=== PATIENT | female | born 1965 | race Caucasian/White ===

== ENCOUNTER 2020-12-08 15:28 | Emergency (ER) | payer OTHER ==
[~2020-12-08 15:28] MED LIST: FLEXERIL 10 MG10 MG PO; IBUPROFEN800 MG PO; ZOFRAN ODT 4 MG4 MG SL
[2020-12-08 16:30] LABS: HEMOGLOBIN 14.9 gm/dl (12.3-15.3); RED BLOOD COUNT 4.56 M/UL (4.00-5.10); WHITE BLOOD COUNT 8.2 K/UL (4.5-11.0)
[2020-12-08 17:22] LABS: BUN/CREATININE RATIO 14 (0-10)
[2020-12-08] MEDS ORDERED: MACROBID 100 M100 M1 PO (19:41)
== END 2020-12-08 19:15 | disposition home or self-care (01) ==
LOC: ER1 15:28
PROVIDERS: Physician Assistant
DX: N39.0 Urinary tract infection, site not specified (principal); E87.1 Hypo-osmolality and hyponatremia; R19.7 Diarrhea, unspecified; Z90.49 Acquired absence of other specified parts of digestive tract; Z90.710 Acquired absence of both cervix and uterus; Z88.0 Allergy status to penicillin; Z88.2 Allergy status to sulfonamides
CPT/HCPCS: 80053; 81001; 83690; 84703; 85025; 96374; 96375; 99284; J1885; J2270; J2405; J7030; Q9967

== ENCOUNTER 2021-01-14 22:04 | Emergency (ER) | payer OTHER ==
[~2021-01-14 22:04] MED LIST changes: +MACROBID 100 M100 M1 PO
== END 2021-01-14 23:52 | disposition left against medical advice (07) ==
LOC: ER1 22:04
DX: Z53.21 Procedure and treatment not carried out due to patient leaving prior to being seen by health care provider (principal)

== ENCOUNTER 2021-08-25 14:34 | Emergency (ER) | payer OTHER ==
[2021-08-25 16:38] LABS: HEMOGLOBIN 13.4 gm/dl (12.3-15.3); RED BLOOD COUNT 4.12 M/UL (4.00-5.10); WHITE BLOOD COUNT 6.3 K/UL (4.5-11.0)
[2021-08-25 16:54] LABS: BUN/CREATININE RATIO 15 (0-10)
== END 2021-08-25 18:40 | disposition home or self-care (01) ==
LOC: ER1 14:34
PROVIDERS: Preventive Medicine Occupational Medicine
DX: R10.9 Unspecified abdominal pain (principal); G89.29 Other chronic pain
CPT/HCPCS: 80053; 80307; 81001; 83605; 83690; 85025; 85652; 86140; 87086; 96374; 96375; 99284; J1170; J2405

== ENCOUNTER 2021-10-30 13:56 | Emergency (ER) | payer OTHER ==
[2021-10-30 14:56] LABS: HEMOGLOBIN 13.8 gm/dl (12.3-15.3); RED BLOOD COUNT 4.34 M/UL (4.00-5.10); WHITE BLOOD COUNT 5.5 K/UL (4.5-11.0)
[2021-10-30 15:15] LABS: BUN/CREATININE RATIO 15 (0-10)
== END 2021-10-30 18:15 | disposition home or self-care (01) ==
LOC: ER1 13:56
PROVIDERS: Physician Assistant
DX: R10.32 Left lower quadrant pain (principal); Z90.710 Acquired absence of both cervix and uterus
CPT/HCPCS: 80053; 81001; 83690; 85025; 96374; 96375; 99284; J2270; J2405; J7030; Q9967

== ENCOUNTER → 2021-11-12 | Outpatient (CLI) | payer OTHER | LOC: RAD 07:30 | DX: R10.9 Unspecified abdominal pain (principal); R14.0 Abdominal distension (gaseous) | CPT/HCPCS: 74250 ==